=== PATIENT | male | born 1960 | race Caucasian/White ===

== ENCOUNTER 2020-05-30 08:44 | Day surgery (SDC) | payer OTHER ==
[2020-05-30] VITALS (12 sets, daily range): BP systolic 105–146; BP diastolic 61–88; PULSE 48–74
[~2020-05-30] VITALS: Ht 167.6 cm; Wt 83.6 kg
[2020-05-30] MEDS ORDERED: TYLENOL 500MG500 MG PO (09:54)
[2020-05-30] MEDS ORDERED: PROAIR HFA0.09 MG/AC IH (09:55)
[2020-05-30 09:56] LABS: HEMATOCRIT 41.7 % (42.0-52.0); HEMOGLOBIN 13.7 g/dl (13.5-18.0); MEAN CELL VOLUME 90 fl (80.0-100.0); MEAN CORPUSCULAR HEMOGLOBIN 30 pg (27.0-31.0); MEAN CORPUSCULAR HGB CONC 33 g/dl (33.0-37.0); MEAN PLATELET VOLUME 9.2 fl (7.4-10.4); PLATELET COUNT 223 K/mm3 (130-400); RED BLOOD COUNT 4.62 M/mm3 (4.20-5.60); REDCELL DISTRIBUTION WIDTH-CV 13.2 % (11.5-14.5)
[2020-05-30] MEDS ORDERED: ASPIRIN 81M81 MG/TA2 PO (09:57)
[2020-05-30] MEDS ORDERED: ZYRTEC 10MG10 MG PO (09:58)
[2020-05-30] MEDS ORDERED: FLONASEALLERGY NS (09:58)
[2020-05-30] MEDS ORDERED: CENTRUM SILVER1 CTB PO (09:59)
[2020-05-30] MEDS ORDERED: TOPROL XL 25MG25 MG PO ×2 (09:59→11:18)
[2020-05-30] MEDS ORDERED: NITROSTAT0.4 MG/TAB SL (10:00)
[2020-05-30] MEDS ORDERED: ALEVE 220MG220 MG PO (10:01)
[2020-05-30 10:09] LABS: CALCIUM 9.3 mg/dL (8.4-10.2); CREATININE, serum 0.89 (0.66-1.25); POTASSIUM 4.2 mmol/L (3.4-5.0)
[2020-05-30 10:13] LABS: PROTHROMBIN TIME 10.9 SECONDS (9.7-12.8)
[2020-05-30 10:16] LABS: PARTIAL THROMBOPLASTIN TIME 27.5 SECONDS (26.0-37.0)
--- NOTE | 2020-05-30 10:29 | NUR ---
Pt to procedure,report to Carlos ackerman.
--- NOTE | 2020-05-30 10:41 | NUR ---
SEE MERGE FOR MEDICATION ADMINISTRATION TIMES AND INTRA AND POST SEDATION ASSESSMENTS.
[2020-05-30] MEDS ORDERED: IMDUR 30MG30 MG/TAB PO (11:15)
--- NOTE | 2020-05-30 11:36 | NUR ---
Pt returned from procedure,report from BERKLEY Honeycutt.
--- NOTE | 2020-05-30 15:00 | NUR ---
Discharge instructions given to pt.pt verbalizes understanding.INT removed,catheter tip intact.Pt escorted out via wheelchair by this nurse.
== END 2020-05-30 15:15 | disposition home or self-care (01) ==
LOC: COL.CAR 08:44
PROVIDERS: Internal Medicine Cardiovascular Disease
DX: I20.0 Unstable angina (principal); E78.5 Hyperlipidemia, unspecified; F41.9 Anxiety disorder, unspecified; I10 Essential (primary) hypertension; E78.49 Other hyperlipidemia; I34.0 Nonrheumatic mitral (valve) insufficiency; I77.819 Aortic ectasia, unspecified site; I51.7 Cardiomegaly; Z79.51 Long term (current) use of inhaled steroids; Z79.82 Long term (current) use of aspirin
CPT/HCPCS: C1769; J1644; J2250; J3010; Q9967